=== PATIENT | male | born 1955 | race Caucasian/White ===

== ENCOUNTER 2019-01-12 20:57 | Inpatient (IN) | payer MEDICARE ==
[2019-01-12] MEDS ORDERED: Sodium Chloride 0.9% 1,000 ML IV STA (21:55)
--- NOTE | 2019-01-12 22:01 | ED PDOC ---
HPI: Abdomen Time Seen by Provider: 01/12/19 21:27 Chief Complaint (Nursing): Abdominal Pain Chief Complaint (Provider): Abdominal Pain History Per: Patient, Family (brother) History/Exam Limitations: no limitations Onset/Duration Of Symptoms: Days (worsened today) Current Symptoms Are (Timing): Constant Location Of Pain/Discomfort: RLQ Quality Of Discomfort: "Pain" Associated Symptoms: Nausea, Urinary Symptoms. denies: Fever, Vomiting, Diarrhea, Back Pain Additional Complaint(s): 63 year old male with a history of CVA, hypertension and possible kidney stones presents to the ED with constant, right sided abdominal and flank pain. Patient reports pain started in September, but worsened today. At onset, patient was evaluated in [place], at which time they found possible kidney stones on the left side. At present pain does not radiate to back. Patient is bloated, nauseous, and has pain with urination, but denies any vomiting, hematuria, and diarrhea. Patient does not take aspirin due to previous hemorrhagic stroke. He still has residual right sided arm and leg weakness. PMD: Leobardo Past Medical History Reviewed: Historical Data, Nursing Documentation, Vital Signs Vital Signs: Last Vital Signs Temp 98.6 F 01/12/19 21:05 Pulse 77 01/12/19 21:05 Resp 18 01/12/19 21:05 BP 186/108 H 01/12/19 21:05 Pulse Ox 97 01/12/19 21:05 - Medical History PMH: CVA (Right sided residual weakness), HTN, Kidney Stones, Chronic Kidney Disease Denies: Alzheimer's Disease, Arthritis, Atrial Fibrillation, CAD, Cardia Arrhythmia, CHF, COPD, Dementia, HIV, Hypercholesterolemia, Hypothyroidism, Migraine, Mitral Valve Prolapse, Multiple Sclerosis, Parkinson's Disease, Peripheral Edema, Rheumatoid Arthritis, Seizures, TIA - Surgical History Surgical History: Hernia Repair Denies: Appendectomy, CABG, Carotid Endarterectomy, Cholecystectomy, Coronary Stent, Pacemaker, Tonsillectomy Other surgeries: 2 orthopedic surgeries - Family History Family History: States: Unknown Family Hx - Home Medications Home Medications: Ambulatory Orders Medication Instructions Recorded Multivit-Min/Folic/Vit K/Lycop 1 tab PO DAILY 03/21/16 [One-A-Day Men's Tablet] Diltiazem HCl [Cartia Xt] 240 mg PO DAILY #0 03/22/16 Metoprolol Tartrate 50 mg PO BID #0 03/22/16 - Allergies Allergies/Adverse Reactions: Allergies Allergy/AdvReac Type Severity Reaction Status Date / Time aspirin Allergy RASH Verified 01/12/19 21:03 Review of Systems ROS Statement: Except As Marked, All Systems Reviewed And Found Negative Gastrointestinal: Positive for: Nausea, Abdominal Pain. Negative for: Vomiting, Diarrhea Genitourinary Male: Positive for: Dysuria. Negative for: Hematuria Physical Exam - Reviewed Nursing Documentation Reviewed: Yes Vital Signs Reviewed: Yes - Physical Exam Appears: Positive for: Non-toxic, No Acute Distress Head Exam: Positive for: ATRAUMATIC, NORMOCEPHALIC Skin: Positive for: Normal Color, Warm, Dry Eye Exam: Positive for: Normal appearance, EOMI, PERRL Cardiovascular/Chest: Positive for: Regular Rate, Rhythm Respiratory: Positive for: Normal Breath Sounds. Negative for: Respiratory Distress Gastrointestinal/Abdominal: Positive for: Soft, Tenderness (RLQ tenderness) Neurological/Psych: Positive for: Awake, Alert, Oriented (x3), Other (right arm and right leg residual weakness after CVA). Negative for: Facial Droop - Laboratory Results Result Diagrams: 01/14/19 06:35 01/14/19 06:35 - ECG O2 Sat by Pulse Oximetry: 97 (RA) Pulse Ox Interpretation: Normal Medical Decision Making Medical Decision Making: Time: 2153 Impression: RLQ pain Differential diagnoses include but are not limited to: acute appendicitis, obstructive nephrolithiasis, or UTI Plan: --CT abdomen and pelvis --CMP --U dip --CBC --Morphine 2 mg IVP --IV fluids --UA Time: 2300 --Patient signed out to Dr. Fox by this provider, pending CT abdomen. Scribe Attestation: Documented by Kay Antonio, acting as a scribe for Camila Coronado MD. Provider Scribe Attestation: All medical record entries made by the Scribe were at my direction and personally dictated by me. I have reviewed the chart and agree that the record accurately reflects my personal performance of the history, physical exam, medical decision making, and the department course for this patient. I have also personally directed, reviewed, and agree with the discharge instructions and disposition. Disposition - Clinical Impression Clinical Impression: Ureteral calculus, Obstructive uropathy, Abdominal pain - Patient ED Disposition Is Patient to be Admitted: Transfer of Care Counseled Patient/Family Regarding: Studies Performed, Diagnosis - Disposition Disposition: Transfer of Care Disposition Time: 23:00 Condition: STABLE Patient Signed Over To: Talon Fox
[2019-01-12 22:18] LABS: BASO # 0.1 K/uL (0.0-0.2); BASO % 0.5 % (0.0-2.0); EOS # 0.1 K/uL (0.0-0.7); EOS % 1.1 % (0.0-4.0); LYMPH # 1.9 K/uL (1.0-4.3); MEAN CELL VOLUME 83.2 fl (80.0-94.0); MEAN CORPUSCULAR HEMOGLOBIN 26.8 pg (27.0-31.0); MEAN CORPUSCULAR HGB CONC 32.2 g/dL (33.0-37.0); MEAN PLATELET VOLUME 8.6 fl (7.2-11.7); MONO # 0.8 K/uL (0.0-0.8); MONO % 6.7 % (0.0-10.0); NEUT # 8.5 K/uL (1.8-7.0); NEUT % 74.7 % (50.0-75.0); RBC 4.85 Mil/uL (4.40-5.90); RED CELL DISTRIBUTION WIDTH 14.9 % (11.5-14.5); WHITE BLOOD COUNT 11.4 K/uL (4.8-10.8)
[2019-01-12 22:28] LABS: ALBUMIN 3.8 g/dL (3.5-5.0); ALT/SGPT 30 U/L (21-72); AST/SGOT 24 U/L (17-59); BLOOD UREA NITROGEN 13 mg/dl (9-20); CALCIUM 9.2 mg/dL (8.4-10.2); GFR NON-AFRICAN AMERICAN > 60
[2019-01-12 22:28] LABS: URINE BILIRUBIN NEGATIVE (NEGATIVE); URINE BLOOD NEGATIVE (NEGATIVE); URINE CLARITY CLEAR (Clear); URINE COLOR YELLOW (YELLOW); URINE GLUCOSE (UA) NEG (NEGATIVE); URINE LEUKOCYTE ESTERASE NEG Leu/uL (Negative); URINE PROTEIN NEGATIVE (NEGATIVE); URINE UROBILINOGEN 0.2-1.0 mg/dL (0.2-1.0)
[2019-01-12] MEDS ORDERED: Sodium Chloride 0.9% 50 ML IV ONE ×2 (22:45→22:54)
[2019-01-12] MEDS ORDERED: Iohexol 300 100 ML IJ ONE ×2 (22:45→22:53)
--- NOTE | 2019-01-12 23:21 | ED PDOC ---
- Laboratory Results Result Diagrams: 01/12/19 22:10 01/12/19 22:10 Lab Results: Total Bilirubin 0.4 mg/dl (0.2-1.3) 01/12/19 22:10 AST 24 U/L (17-59) 01/12/19 22:10 ALT 30 U/L (21-72) 01/12/19 22:10 Alkaline Phosphatase 136 U/L (38-126) H 01/12/19 22:10 Total Protein 7.7 G/DL (6.3-8.2) 01/12/19 22:10 Albumin 3.8 g/dL (3.5-5.0) 01/12/19 22:10 Globulin 3.9 gm/dL (2.2-3.9) 01/12/19 22:10 Albumin/Globulin Ratio 1.0 (1.0-2.1) 01/12/19 22:10 Urine Color Yellow (YELLOW) 01/12/19 22:15 Urine Clarity Clear (Clear) 01/12/19 22:15 Urine pH 7.0 (5.0-8.0) 01/12/19 22:15 Ur Specific Exline 1.015 (1.003-1.030) 01/12/19 22:15 Urine Protein Negative mg/dL (NEGATIVE) 01/12/19 22:15 Urine Glucose (UA) Neg mg/dL (NEGATIVE) 01/12/19 22:15 Urine Ketones Negative mg/dL (NEGATIVE) 01/12/19 22:15 Urine Blood Negative (NEGATIVE) 01/12/19 22:15 Urine Nitrate Negative (NEGATIVE) 01/12/19 22:15 Urine Bilirubin Negative (NEGATIVE) 01/12/19 22:15 Urine Urobilinogen 0.2-1.0 mg/dL (0.2-1.0) 01/12/19 22:15 Ur Leukocyte Esterase Neg Lukas/uL (Negative) 01/12/19 22:15 Urine Microscopic WBC 2 /hpf (0-5) 01/12/19 22:15 - ECG O2 Sat by Pulse Oximetry: 97 (RA) Pulse Ox Interpretation: Normal Medical Decision Making Medical Decision Makin:00 Patient signed out to this provider by Dr. Coronado pending CT abdomen. 00:11 CT Abdomen & Pelvis w/ contrast FINDINGS: LUNG BASES: The lung bases appear clear. No pleural effusions are seen. LIVER: There is mild diffuse fatty infiltration of liver. GALLBLADDER AND BILE DUCTS: Multiple gallstones are present. PANCREAS: Unremarkable. SPLEEN: Unremarkable. ADRENAL GLANDS: Unremarkable. KIDNEYS, URETERS, AND BLADDER: There are bilateral renal cysts, right much greater than left. The largest a septated cyst versus 2 adjoining cysts at the right lower pole measuring 12.2 cm in greatest dimension on series 2, image 46. Given the presence of an apparent soft tissue septae consider further evaluation with renal ultrasound or renal MRI if indicated. There is mild to moderate right hydronephrosis and right hydroureter to the level of the ureterovesicular junction where there is an obstructing calculus m easuring 12 x 10 mm. Bladder is decompressed. STOMACH AND BOWEL: Stomach is predominantly decompressed. There is moderate to severe sigmoid diverticulosis. There is questionable mild stranding near the proximal sigmoid near images 60 of series 2. This could represent mild acute diverticulitis. Please correlate clinically. There is constipation the proximal colon. No evidence for bowel obstruction. APPENDIX: No evidence of acute appendicitis on CT examination. PERITONEUM: No free fluid. No free air. LYMPH NODES: No lymphadenopathy is evident. REPRODUCTIVE: Prostate is prominent measuring 5.0 cm transverse. VASCULATURE: No evidence of abdominal aortic aneurysm. BONES: There is a mild s-shaped thoracolumbar scoliosis. There are moderate multilevel degenerative spine changes. MISCELLANEOUS: There is a tiny fat containing left inguinal hernia. IMPRESSION: 1. There is mild diffuse fatty infiltration of liver. 2. Multiple gallstones are present. 3. There are bilateral renal cysts, right much greater than left. The largest a septated cyst versus 2 adjoining cysts at the right lower pole measuring 12.2 cm in greatest dimension on series 2, image 46. Given the presence of an apparent soft tissue septae consider further evaluation with renal ultrasound or renal MRI if indicated. 4. There is mild to moderate right hydronephrosis and right hydroureter to the level of the ureterovesicular junction where there is an obstructing calculus measuring 12 x 10 mm. 5. There is moderate to severe sigmoid diverticulosis. There is questionable mild stranding near the proximal sigmoid near images 60 of series 2. This could represent mild acute diverticulitis. Please correlate clinically. 6. Additional incidental and non urgent findings as described above. 00:[address] Peraza of patient. He will be admitted for obstructive uropathy secondary to right sided urethral calculus with hydronephrosis and hydroureter. Scribe Attestation: Documented by Nikki Bermudez, acting as a scribe Jaylin Fox MD. Provider Scribe Attestation: All medical record entries made by the Scribe were at my direction and personally dictated by me. I have reviewed the chart and agree that the record accurately reflects my personal performance of the history, physical exam, medical decision making, and the department course for this patient. I have also personally directed, reviewed, and agree with the discharge instructions and disposition. Disposition - Clinical Impression Clinical Impression: Ureteral calculus, Obstructive uropathy - POA Present On Arrival: None - Disposition Disposition: Admitted as In-Patient Disposition Time: 01:00 Condition: FAIR
[2019-01-13] MEDS ORDERED: cefTRIAXone (Rocephin) 1 gm Inj ONE (01:22)
--- NOTE | 2019-01-13 01:23 | CP.PCM.HP ---
<Freya Butterfield - Last Filed: 01/13/19 02:07> History of Present Illness - History of Present Illness History of Present Illness: 63 year old male with a history of hemorrhagic CVA with residual R side weakness, hypertension and kidney stones in the past presents to the ED with constant, right sided abdominal and flank pain. Patient reports pain intermittently since September and was evaluated in [place], at that time they found possible kidney stones on the left side. Today he reports pain is worse, constant, 8/10, does not radiate to back or groin.Associated abdominal bloating, nauseous, and has pain with urination, but denies any vomiting, hematuria, and diarrhea, states good urine output. Patient does not take aspirin due to previous hemorrhagic stroke. PMD: Leobardo PMH: Hemorrhagic CVA 30 yrs ago with residual R side weakness, HTN, BPH, Kidney stone. PSH: Hernia Repair, 2 orthopedic surgeries FMH: noncontributory Meds: reviewed NKDA. SH: occasional etoh on weekends, denies tobacco or ilicit drugs use. Present on Admission - Present on Admission Any Indicators Present on Admission: No Review of Systems - Review of Systems All systems: reviewed and no additional remarkable complaints except (HPI) Past Patient History - Past Medical History & Family History Past Medical History?: Yes - Past Social History Smoking Status: Never Smoked - CARDIAC Hx Atrial Fibrillation: No Hx Cardia Arrhythmia: No Hx Congestive Heart Failure: No Hx Hypercholesterolemia: No Hx Hypertension: Yes Hx Mitral Valve Prolapse: No Hx Pacemaker: No Hx Peripheral Edema: No - PULMONARY Hx Chronic Obstructive Pulmonary Disease (COPD): No - NEUROLOGICAL Hx Alzheimer's Disease: No Hx Dementia: No Hx Migraine: No Hx Multiple Sclerosis: No Hx Parkinson's Disease: No Hx Seizures: No Hx Transient Ischemic Attacks (TIA): No - HEENT Hx HEENT Problems: No - RENAL Hx Chronic Kidney Disease: Yes Hx Kidney Stones: Yes - ENDOCRINE/METABOLIC Hx Hypothyroidism: No - HEMATOLOGICAL/ONCOLOGICAL Hx Human Immunodeficiency Virus (HIV): No - INTEGUMENTARY Hx Dermatological Problems: No Other/Comment: Chicken Pox - MUSCULOSKELETAL/RHEUMATOLOGICAL Hx Arthritis: No Hx Rheumatoid Arthritis: No - GASTROINTESTINAL Hx Gastrointestinal Disorders: No - GENITOURINARY/GYNECOLOGICAL Hx Genitourinary Disorders: No Other/Comment: Hydrocele - PSYCHIATRIC Hx Psychophysiologic Disorder: No Hx Substance Use: No - SURGICAL HISTORY Hx Appendectomy: No Hx Carotid Endarterectomy: No Hx Cholecystectomy: No Hx Coronary Artery Bypass Graft: No Hx Coronary Stent: No Hx Tonsillectomy: No - ANESTHESIA Hx Anesthesia: Yes Hx Anesthesia Reactions: No Hx Malignant Hyperthermia: No Meds Allergies/Adverse Reactions: Allergies Allergy/AdvReac Type Severity Reaction Status Date / Time aspirin Allergy RASH Verified 01/12/19 21:03 Physical Exam - Constitutional Appears: No Acute Distress - Head Exam Head Exam: NORMAL INSPECTION - Eye Exam Eye Exam: EOMI, PERRL - Respiratory Exam Respiratory Exam: Clear to Auscultation Bilateral, NORMAL BREATHING PATTERN - Cardiovascular Exam Cardiovascular Exam: REGULAR RHYTHM, +S1, +S2. absent: Tachycardia - GI/Abdominal Exam GI & Abdominal Exam: Normal Bowel Sounds, Soft, Tenderness (RLQ, no CVA tenderness). absent: Distended - Extremities Exam Extremities exam: Negative for: calf tenderness, pedal edema - Back Exam Back exam: absent: CVA tenderness (L), CVA tenderness (R) - Neurological Exam Neurological exam: Abnormal Gait (Due to R side weakness, R arm also hemiplegic), Alert, Oriented x3 - Skin Skin Exam: Dry, Normal Color, Warm Results - Vital Signs Recent Vital Signs: Last Vital Signs Temp 98.6 F 01/12/19 21:05 Pulse 77 01/12/19 21:05 Resp 18 01/12/19 21:05 BP 186/108 H 01/12/19 21:05 Pulse Ox 97 01/13/19 00:39 - Labs Result Diagrams: 01/12/19 22:10 01/12/19 22:10 Labs: Laboratory Results - last 24 hr 01/12/19 01/12/19 01/12/19 22:10 22:10 22:15 WBC 11.4 H RBC 4.85 Hgb 13.0 Hct 40.4 MCV 83.2 MCH 26.8 L MCHC 32.2 L RDW 14.9 H Plt Count 281 MPV 8.6 Neut % (Auto) 74.7 Lymph % (Auto) 17.0 L Wright % (Auto) 6.7 Eos % (Auto) 1.1 Baso % (Auto) 0.5 Neut # (Auto) 8.5 H Lymph # (Auto) 1.9 Wright # (Auto) 0.8 Eos # (Auto) 0.1 Baso # (Auto) 0.1 Sodium 141 Potassium 4.2 Chloride 99 Carbon Dioxide 28 Anion Gap 18 BUN 13 Creatinine 1.0 Est GFR ( Amer) > 60 Est GFR (Non-Af Amer) > 60 Random Glucose 120 H Calcium 9.2 Total Bilirubin 0.4 AST 24 ALT 30 Alkaline Phosphatase 136 H Total Protein 7.7 Albumin 3.8 Globulin 3.9 Albumin/Globulin Ratio 1.0 Urine Color Yellow Urine Clarity Clear Urine pH 7.0 Ur Specific Prescott 1.015 Urine Protein Negative Urine Glucose (UA) Neg Urine Ketones Negative Urine Blood Negative Urine Nitrate Negative Urine Bilirubin Negative Urine Urobilinogen 0.2-1.0 Ur Leukocyte Esterase Neg Urine Microscopic WBC 2 Assessment & Plan - Assessment and Plan (Free Text) Assessment: 63 year old male with a history of hemorrhagic CVA with residual R side weakness, hypertension and kidney stones in the past presents to the ED with constant, right sided abdominal and flank pain. Patient reports pain intermit tently since September and was evaluated in [place], at that time they found possible kidney stones on the left side. Today he reports pain is worse, constant, 8/10, does not radiate to back or groin.Associated abdominal bloating, nauseous, and has pain with urination, but denies any vomiting, hematuria, and diarrhea, states good urine output. Patient does not take aspirin due to previous hemorrhagic stroke. Patient admitted due to obstructive uropathy and R ureter stone. ABD CT: mild diffuse fatty infiltration of liver, Multiple gallstones are present. There are bilateral renal cysts, right much greater than left. The largest a septated cyst versus 2 adjoining cysts at the right lower pole measuring 12.2 cm in greatest dimension on series 2, image 46. Given the presence of an apparent soft tissue septae consider further evaluation with renal ultrasound or renal MRI if indicated. There is mild to moderate right hydronephrosis and right hydroureter to the level of the ureterovesicular junction where there is an obstructing calculus measuring 12 x 10 mm. There is moderate to severe sigmoid diverticulosis. There is questionable mild stranding near the proximal sigmoid near images 60 of series 2. This could represent mild acute diverticulitis. Plan: Obstructive uropathy/Ureteral stone/ b/l renal cysts - secondary to right sided ureteral calculus with hydronephrosis and hydroureter - obstructing calculus measuring 12 x [address] - Urology Dr Peraza consulted, recs appreciated - UA negative for UTI - Continue IV fluids - Pain management : morphine - NPO except meds - f/u labs in am h/o hemorrhagic CVA - residual R side weakness - continue home meds Hypertension - well controlled - continue home meds BPH - stable - c/w tamsulosin DVT ppx - SCD for now FULL CODE Case seen and examined with Dr Maurilio Majano PGY 2 <Jose Thorpe - Last Filed: 01/13/19 04:58> Results - Vital Signs Recent Vital Signs: Last Vital Signs Temp 98.1 F 01/13/19 02:24 Pulse 66 01/13/19 02:24 Resp 19 01/13/19 02:24 BP 164/99 H 01/13/19 02:24 Pulse Ox 97 01/13/19 02:24 - Labs Result Diagrams: 01/12/19 22:10 01/12/19 22:10 Labs: Laboratory Results - last 24 hr 01/12/19 01/12/19 01/12/19 22:10 22:10 22:15 WBC 11.4 H RBC 4.85 Hgb 13.0 Hct 40.4 MCV 83.2 MCH 26.8 L MCHC 32.2 L RDW 14.9 H Plt Count 281 MPV 8.6 Neut % (Auto) 74.7 Lymph % (Auto) 17.0 L Wright % (Auto) 6.7 Eos % (Auto) 1.1 Baso % (Auto) 0.5 Neut # (Auto) 8.5 H Lymph # (Auto) 1.9 Wright # (Auto) 0.8 Eos # (Auto) 0.1 Baso # (Auto) 0.1 Sodium 141 Potassium 4.2 Chloride 99 Carbon Dioxide 28 Anion Gap 18 BUN 13 Creatinine 1.0 Est GFR ( Amer) > 60 Est GFR (Non-Af Amer) > 60 Random Glucose 120 H Calcium 9.2 Total Bilirubin 0.4 AST 24 ALT 30 Alkaline Phosphatase 136 H Total Protein 7.7 Albumin 3.8 Globulin 3.9 Albumin/Globulin Ratio 1.0 Urine Color Yellow Urine Clarity Clear Urine pH 7.0 Ur Specific [place] 1.015 Urine Protein Negative Urine Glucose (UA) Neg Urine Ketones Negative Urine Blood Negative Urine Nitrate Negative Urine Bilirubin Negative Urine Urobilinogen 0.2-1.0 Ur Leukocyte Esterase Neg Urine Microscopic WBC 2 Attending/Attestation - Attestation I have personally seen and examined this patient.: Yes I have fully participated in the care of the patient.: Yes I have reviewed all pertinent clinical information: Yes Notes (Text): 01/13/19 04:44 I saw, examined and discussed this patient with Dr Butterfield. I agree with the assessment and plan outlined above. This is a 63 years old male with hx of Nephrolithiasis, who comes with Right lower quadrant abdominal pain with nausea, diaphoresis and increase in this pain on urination.The CT abdomen/pelvis showed a calculus 12/10mm at the right Uretervesical junctioin with hydroureter and hydronephrosis. We will consult Urology for this renal colic, start pain management. Start IV fluids, Flomax and Empiric antibiotics for UTI. The CT scan also suggest representation of acute sigmoid Diverticulitis. We will continue our present antibiotic. Jose Thorpe MD
[2019-01-13] MEDS: Sodium Chloride 0.9% 1,000 ML IV SCH ×4 (01:30→21:19)
[2019-01-13] MEDS ORDERED: Morphine 4 MG/ML VIAL IVP PRN (04:37)
[2019-01-13] MEDS: Morphine 4 MG/ML VIAL IVP PRN ×2 (05:16→13:16)
[2019-01-13 06:55] LABS: BASO # 0.1 K/uL (0.0-0.2); BASO % 0.5 % (0.0-2.0); EOS # 0.2 K/uL (0.0-0.7); EOS % 1.6 % (0.0-4.0); HEMOGLOBIN 13.1 g/dL (12.0-18.0); LYMPH # 2.8 K/uL (1.0-4.3); LYMPH % 25.6 % (20.0-40.0); MEAN CORPUSCULAR HEMOGLOBIN 27.2 pg (27.0-31.0); MEAN CORPUSCULAR HGB CONC 32.8 g/dL (33.0-37.0); MEAN PLATELET VOLUME 9.3 fl (7.2-11.7); NEUT # 6.9 K/uL (1.8-7.0); NEUT % 63.3 % (50.0-75.0); NRBC % 0.1 % (0.0-0.0); RBC 4.81 Mil/uL (4.40-5.90); RED CELL DISTRIBUTION WIDTH 14.6 % (11.5-14.5); WHITE BLOOD COUNT 10.9 K/uL (4.8-10.8)
[2019-01-13 07:02] LABS: ALBUMIN 3.6 g/dL (3.5-5.0); ALT/SGPT 23 U/L (21-72); AST/SGOT 21 U/L (17-59); BLOOD UREA NITROGEN 10 mg/dl (9-20); CALCIUM 8.9 mg/dL (8.4-10.2); GFR NON-AFRICAN AMERICAN > 60
[2019-01-13] MEDS: Multivitamin With Minerals Tab PO SCH (08:51)
[2019-01-13] MEDS: diltiaZEM 240 mg/24 Hours CD Cap PO SCH (08:52)
[2019-01-13] MEDS ORDERED: LYCOP PO SCH (09:00)
[2019-01-13] MEDS ORDERED: MULTIVIT MIN PO SCH (09:00)
[2019-01-13] MEDS ORDERED: VIT K PO SCH (09:00)
[2019-01-13] MEDS ORDERED: FOLIC PO SCH (09:00)
[2019-01-13 09:11] LABS: INR 1.1
--- NOTE | 2019-01-13 12:20 | CT ---
Date of service: 01/12/2019 PROCEDURE: CT Abdomen and Pelvis with contrast HISTORY: RLQ pain COMPARISON: 01/11/2013 CT scan, ultrasound exam 03/06/2018 TECHNIQUE: Contrast dose: 95 mL Radiation dose: Total exam DLP = 826.61 mGy-cm. This CT exam was performed using one or more of the following dose reduction techniques: Automated exposure control, adjustment of the mA and/or kV according to patient size, and/or use of iterative reconstruction technique. FINDINGS: LOWER THORAX: Mild dependent atelectasis and minor interstitial thickening is seen at the lung bases. No focal infiltrate or pleural effusion is seen. No pericardial effusion is noted. Distal esophagus is unremarkable. LIVER: Diffuse fatty infiltration of the liver is once again identified. No focal liver mass or intrahepatic ductal dilatation is seen. GALLBLADDER AND BILE DUCTS: Multiple gallstones are noted. No gallbladder wall thickening or pericholecystic fluid. Common bile duct is normal in size. PANCREAS: Unremarkable. No gross lesion or ductal dilatation. SPLEEN: Unremarkable. ADRENALS: Unremarkable. No mass. KIDNEYS AND URETERS: There is evidence of a very large right intramural UVJ calculus causing moderate right hydroureter and hydronephrosis. This measures up to 12 millimeters in size. Mild perinephric changes are identified. There is additionally interval increase in size of 2 large exophytic lower pole right renal cysts from the prior study. These were evaluated on the recent ultrasound examination from 2018. There is some minimal thickening of the septa although no appreciable abnormal enhancement is noted. Follow-up ultrasound would be suggested as the preliminary report mentions some thickening of the septa and soft tissue. Smaller left renal cyst is identified. No left renal calculus or hydronephrosis is seen. No left ureteral calculus is noted. VASCULATURE: Unremarkable. No aortic aneurysm. No aortic atherosclerotic calcification or mural plaque present. BOWEL: Chronic diverticular changes are seen in the sigmoid colon. Minimal pericolonic changes are not excluded adjacent to the sigmoid colon. No bowel obstruction is identified. Small bowel is otherwise unremarkable. Stomach is decompressed limiting evaluation for wall thickening. APPENDIX: Normal appendix. PERITONEUM: No ascites is seen. No free intraperitoneal air is identified. LYMPH NODES: Unremarkable. No enlarged lymph nodes. BLADDER: Right intramural UVJ calculus. No other bladder calculus or bladder wall thickening seen. REPRODUCTIVE: Prostate gland is enlarged. BONES: Degenerative changes are seen in the spine. OTHER FINDINGS: None. IMPRESSION: Large right UVJ calculus causing right hydronephrosis and perinephric change. Two large lower pole exophytic previously identified renal cyst. Follow-up ultrasound would be suggested to confirm stability. Please see other findings above.
[2019-01-13] MEDS: metroNIDAZOLE 500mg/100ml NS 100 ML IVPB SCH ×2 (13:03→17:17)
--- NOTE | 2019-01-13 18:30 | CARD ---
APPROVED REPORT Date of service: 01/13/2019 EKG Measurement Heart [id number] <Conclusion> Normal sinus rhythm Normal ECG
[2019-01-13] MEDS ORDERED: Enoxaparin 40 mg Syringe SC SCH (19:30)
[2019-01-14] MEDS: metroNIDAZOLE 500mg/100ml NS 100 ML IVPB SCH ×2 (00:43→08:41)
[2019-01-14 07:24] LABS: HEMOGLOBIN 12.2 g/dL (12.0-18.0); MEAN CELL VOLUME 83.1 fl (80.0-94.0); MEAN CORPUSCULAR HEMOGLOBIN 26.5 pg (27.0-31.0); MEAN CORPUSCULAR HGB CONC 31.9 g/dL (33.0-37.0); RBC 4.58 Mil/uL (4.40-5.90); RED CELL DISTRIBUTION WIDTH 14.9 % (11.5-14.5); WHITE BLOOD COUNT 11.3 K/uL (4.8-10.8)
[2019-01-14 08:15] LABS: ALB/GLOB RATIO 0.9 (1.0-2.1); ALBUMIN 3.2 g/dL (3.5-5.0); ALT/SGPT 36 U/L (21-72); AST/SGOT 23 U/L (17-59); BLOOD UREA NITROGEN 12 mg/dl (9-20); CALCIUM 8.6 mg/dL (8.4-10.2); GFR NON-AFRICAN AMERICAN > 60
[2019-01-14] MEDS: diltiaZEM 240 mg/24 Hours CD Cap PO SCH (08:40)
[2019-01-14] MEDS: Sodium Chloride 0.9% 1,000 ML IV SCH (08:40)
[2019-01-14] MEDS: Multivitamin With Minerals Tab PO SCH (08:42)
[2019-01-14] MEDS: Morphine 4 MG/ML VIAL IVP PRN (08:51)
--- NOTE | 2019-01-14 11:53 | RAD ---
Date of service: 01/13/2019 HISTORY: No stated history COMPARISON: 03/21/2016. TECHNIQUE: Chest PA and lateral FINDINGS: LINES AND TUBES: None. LUNG AND PLEURA: The lungs are well inflated and clear. No pleural effusion or pneumothorax. HEART AND MEDIASTINUM: The heart is not enlarged. No aortic atherosclerotic calcifications present. The hilar and mediastinal contours are within normal limits. SKELETAL STRUCTURES: The bony structures are within normal limits for the patient's age. VISUALIZED UPPER ABDOMEN: Normal. OTHER FINDINGS: None. IMPRESSION: No active pulmonary disease.
[2019-01-14] MEDS ORDERED: Propofol 10 mg/ml Inj (20 ML) ONE (12:07)
[2019-01-14] MEDS ORDERED: Midazolam 2 MG/2 ML VIAL ONE (12:08)
[2019-01-14] MEDS ORDERED: cefTRIAXone (Rocephin) 1 gm Inj ONE (12:23)
[2019-01-14] MEDS ORDERED: Lactated Ringer's 500 ML IV ONE (12:30)
[2019-01-14] MEDS ORDERED: Sodium Chloride 0.9% 500 ML IV ONE (12:30)
[2019-01-14] MEDS ORDERED: cefTRIAXone (Rocephin) 1 gm Inj IM ONE (12:35)
[2019-01-14] MEDS ORDERED: ePHEDrine 50 mg/ml Inj ONE (12:39)
[2019-01-14] MEDS ORDERED: Lactated Ringer's 1,000 ML IV ONE (13:16)
[2019-01-14] MEDS ORDERED: Lactated Ringer's 1,000 ML IV SCH (13:30)
--- NOTE | 2019-01-14 15:17 | CP.PCM.DIS ---
Provider - Provider Date of Admission: 01/13/19 00:33 Attending physician: Jose Thorpe Primary care physician: Dr. Booth Consults: 01/13/19 00:34 Urology Consult Stat Comment: already aware Consulting Provider: Irina Peraza Consulting Physician: Irina Peraza Reason for Consult: ureteral calculus Time Spent in preparation of Discharge (in minutes): 30 Hospital Course - Lab Results Lab Results: Most Recent Lab Values WBC 11.3 K/uL (4.8-10.8) H 01/14/19 06:35 RBC 4.58 Mil/uL (4.40-5.90) 01/14/19 06:35 Hgb 12.2 g/dL (12.0-18.0) 01/14/19 06:35 Hct 38.1 % (35.0-51.0) 01/14/19 06:35 MCV 83.1 fl (80.0-94.0) 01/14/19 06:35 MCH 26.5 pg (27.0-31.0) L 01/14/19 06:35 MCHC 31.9 g/dL (33.0-37.0) L 01/14/19 06:35 RDW 14.9 % (11.5-14.5) H 01/14/19 06:35 Plt Count 241 K/uL (130-400) 01/14/19 06:35 MPV 9.3 fl (7.2-11.7) 01/13/19 05:05 Neut % (Auto) 63.3 % (50.0-75.0) 01/13/19 05:05 Lymph % (Auto) 25.6 % (20.0-40.0) 01/13/19 05:05 Ellis % (Auto) 9.0 % (0.0-10.0) 01/13/19 05:05 Eos % (Auto) 1.6 % (0.0-4.0) 01/13/19 05:05 Baso % (Auto) 0.5 % (0.0-2.0) 01/13/19 05:05 Neut # (Auto) 6.9 K/uL (1.8-7.0) 01/13/19 05:05 Lymph # (Auto) 2.8 K/uL (1.0-4.3) 01/13/19 05:05 Ellis # (Auto) 1.0 K/uL (0.0-0.8) H 01/13/19 05:05 Eos # (Auto) 0.2 K/uL (0.0-0.7) 01/13/19 05:05 Baso # (Auto) 0.1 K/uL (0.0-0.2) 01/13/19 05:05 PT 13.0 Seconds (9.8-13.1) 01/13/19 08:20 INR 1.1 01/13/19 08:20 APTT 31.5 Seconds (25.6-37.1) 01/13/19 08:20 Sodium 140 mmol/l (132-148) 01/14/19 06:35 Potassium 4.0 MMOL/L (3.6-5.0) 01/14/19 06:35 Chloride 99 mmol/L (98-107) 01/14/19 06:35 Carbon Dioxide 29 mmol/L (22-30) 01/14/19 06:35 Anion Gap 16 (10-20) 01/14/19 06:35 BUN 12 mg/dl (9-20) 01/14/19 06:35 Creatinine 1.0 mg/dl (0.8-1.5) 01/14/19 06:35 Est GFR ( Amer) > 60 01/14/19 06:35 Est GFR (Non-Af Amer) > 60 01/14/19 06:35 Random Glucose 97 mg/dL (75-110) 01/14/19 06:35 Calcium 8.6 mg/dL (8.4-10.2) 01/14/19 06:35 Total Bilirubin 0.4 mg/dl (0.2-1.3) 01/14/19 06:35 AST 23 U/L (17-59) 01/14/19 06:35 ALT 36 U/L (21-72) 01/14/19 06:35 Alkaline Phosphatase 98 U/L (38-126) 01/14/19 06:35 Total Protein 6.7 G/DL (6.3-8.2) 01/14/19 06:35 Albumin 3.2 g/dL (3.5-5.0) L 01/14/19 06:35 Globulin 3.4 gm/dL (2.2-3.9) 01/14/19 06:35 Albumin/Globulin Ratio 0.9 (1.0-2.1) L 01/14/19 06:35 Urine Color Yellow (YELLOW) 01/12/19 22:15 Urine Clarity Clear (Clear) 01/12/19 22:15 Urine pH 7.0 (5.0-8.0) 01/12/19 22:15 Ur Specific [place] 1.015 (1.003-1.030) 01/12/19 22:15 Urine Protein Negative mg/dL (NEGATIVE) 01/12/19 22:15 Urine Glucose (UA) Neg mg/dL (NEGATIVE) 01/12/19 22:15 Urine Ketones Negative mg/dL (NEGATIVE) 01/12/19 22:15 Urine Blood Negative (NEGATIVE) 01/12/19 22:15 Urine Nitrate Negative (NEGATIVE) 01/12/19 22:15 Urine Bilirubin Negative (NEGATIVE) 01/12/19 22:15 Urine Urobilinogen 0.2-1.0 mg/dL (0.2-1.0) 01/12/19 22:15 Ur Leukocyte Esterase Neg Lukas/uL (Negative) 01/12/19 22:15 Urine Microscopic WBC 2 /hpf (0-5) 01/12/19 22:15 - Hospital Course Hospital Course: 63 year old male with 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 Ct abdomen and pelvis showed right hydronephrosis and obstructing stone at UVJ 12 mm x 10 mm Patient admitted to med/surg started on IVF , pain management , Flomax and Roce phin prophylactically Urology was consulted and he underwent cystoscopy with stone manipulation and stent placement . Patient tolerated procedure well Will d/c home on Cipro 500 mg pO BID for 1 week prophylactically He will need to follow up with Dr. Booth as outpatient follow up with Dr. Javier in his office in 1 week Will need stent removal Dx 1. Renal Colic 2.Right hydronephrosis with right UVJ obstructing stone 3. Hypertension 4.BPH 5.history of hemorrhagic CVA with right side weakness Discharge Exam - Head Exam Head Exam: ATRAUMATIC, NORMOCEPHALIC - Eye Exam Eye Exam: EOMI, Normal appearance, PERRL Pupil Exam: NORMAL ACCOMODATION - ENT Exam ENT Exam: Mucous Membranes Moist, Normal Exam - Neck Exam Neck exam: Full Rom, Normal Inspection - Respiratory Exam Respiratory Exam: Clear to PA & Lateral, NORMAL BREATHING PATTERN. absent: Rales, Rhonchi, Wheezes - Cardiovascular Exam Cardiovascular Exam: REGULAR RHYTHM, RRR, +S1, +S2. absent: JVD - GI/Abdominal Exam GI & Abdominal Exam: Normal Bowel Sounds, Soft. absent: Distended, Guarding, Rebound, Tenderness - Rectal Exam Rectal Exam: Deferred - Extremities Exam Extremities exam: normal capillary refill, normal inspection, pedal pulses present - Back Exam Back exam: NORMAL INSPECTION - Neurological Exam Neurological exam: Alert, CN II-XII Intact, Oriented x3 Additional comments: right UE weakness with hand flexion contracture - Psychiatric Exam Psychiatric exam: Normal Affect, Normal Mood - Skin Skin Exam: Dry, Intact, Normal Color, Warm Discharge Plan - Discharge Medications Prescriptions: Ciprofloxacin [Cipro] 500 mg PO BID #14 tab - Follow Up Plan Condition: STABLE Disposition: HOME/ ROUTINE Patient education suggested?: Yes Instructions: Kidney Stones (DC), Ureteroscopy, Cystoscopy (DC) Additional Instructions: follow up with dr peraza 1 week Referrals: Irina Peraza MD [Medical Doctor] - Karan Booth MD [Staff Provider] -
--- NOTE | 2019-01-14 15:23 | CP.PCM.DIS ---
Provider - Provider Date of Admission: 01/13/19 00:33 Attending physician: Jose Thorpe Consults: 01/13/19 00:34 Urology Consult Stat Comment: already aware Consulting Provider: Irina Dowd Consulting Physician: Irina Dowd Reason for Consult: ureteral calculus Time Spent in preparation of Discharge (in minutes): 38 Hospital Course - Lab Results Lab Results: Most Recent Lab Values WBC 11.3 K/uL (4.8-10.8) H 01/14/19 06:35 RBC 4.58 Mil/uL (4.40-5.90) 01/14/19 06:35 Hgb 12.2 g/dL (12.0-18.0) 01/14/19 06:35 Hct 38.1 % (35.0-51.0) 01/14/19 06:35 MCV 83.1 fl (80.0-94.0) 01/14/19 06:35 MCH 26.5 pg (27.0-31.0) L 01/14/19 06:35 MCHC 31.9 g/dL (33.0-37.0) L 01/14/19 06:35 RDW 14.9 % (11.5-14.5) H 01/14/19 06:35 Plt Count 241 K/uL (130-400) 01/14/19 06:35 MPV 9.3 fl (7.2-11.7) 01/13/19 05:05 Neut % (Auto) 63.3 % (50.0-75.0) 01/13/19 05:05 Lymph % (Auto) 25.6 % (20.0-40.0) 01/13/19 05:05 [place] % (Auto) 9.0 % (0.0-10.0) 01/13/19 05:05 Eos % (Auto) 1.6 % (0.0-4.0) 01/13/19 05:05 Baso % (Auto) 0.5 % (0.0-2.0) 01/13/19 05:05 Neut # (Auto) 6.9 K/uL (1.8-7.0) 01/13/19 05:05 Lymph # (Auto) 2.8 K/uL (1.0-4.3) 01/13/19 05:05 [place] # (Auto) 1.0 K/uL (0.0-0.8) H 01/13/19 05:05 Eos # (Auto) 0.2 K/uL (0.0-0.7) 01/13/19 05:05 Baso # (Auto) 0.1 K/uL (0.0-0.2) 01/13/19 05:05 PT 13.0 Seconds (9.8-13.1) 01/13/19 08:20 INR 1.1 01/13/19 08:20 APTT 31.5 Seconds (25.6-37.1) 01/13/19 08:20 Sodium 140 mmol/l (132-148) 01/14/19 06:35 Potassium 4.0 MMOL/L (3.6-5.0) 01/14/19 06:35 Chloride 99 mmol/L (98-107) 01/14/19 06:35 Carbon Dioxide 29 mmol/L (22-30) 01/14/19 06:35 Anion Gap 16 (10-20) 01/14/19 06:35 BUN 12 mg/dl (9-20) 01/14/19 06:35 Creatinine 1.0 mg/dl (0.8-1.5) 01/14/19 06:35 Est GFR ( Amer) > 60 01/14/19 06:35 Est GFR (Non-Af Amer) > 60 01/14/19 06:35 Random Glucose 97 mg/dL (75-110) 01/14/19 06:35 Calcium 8.6 mg/dL (8.4-10.2) 01/14/19 06:35 Total Bilirubin 0.4 mg/dl (0.2-1.3) 01/14/19 06:35 AST 23 U/L (17-59) 01/14/19 06:35 ALT 36 U/L (21-72) 01/14/19 06:35 Alkaline Phosphatase 98 U/L (38-126) 01/14/19 06:35 Total Protein 6.7 G/DL (6.3-8.2) 01/14/19 06:35 Albumin 3.2 g/dL (3.5-5.0) L 01/14/19 06:35 Globulin 3.4 gm/dL (2.2-3.9) 01/14/19 06:35 Albumin/Globulin Ratio 0.9 (1.0-2.1) L 01/14/19 06:35 Urine Color Yellow (YELLOW) 01/12/19 22:15 Urine Clarity Clear (Clear) 01/12/19 22:15 Urine pH 7.0 (5.0-8.0) 01/12/19 22:15 Ur Specific [place] 1.015 (1.003-1.030) 01/12/19 22:15 Urine Protein Negative mg/dL (NEGATIVE) 01/12/19 22:15 Urine Glucose (UA) Neg mg/dL (NEGATIVE) 01/12/19 22:15 Urine Ketones Negative mg/dL (NEGATIVE) 01/12/19 22:15 Urine Blood Negative (NEGATIVE) 01/12/19 22:15 Urine Nitrate Negative (NEGATIVE) 01/12/19 22:15 Urine Bilirubin Negative (NEGATIVE) 01/12/19 22:15 Urine Urobilinogen 0.2-1.0 mg/dL (0.2-1.0) 01/12/19 22:15 Ur Leukocyte Esterase Neg Lukas/uL (Negative) 01/12/19 22:15 Urine Microscopic WBC 2 /hpf (0-5) 01/12/19 22:15 Discharge Exam - Head Exam Head Exam: ATRAUMATIC, NORMOCEPHALIC Discharge Plan - Discharge Medications Prescriptions: Ciprofloxacin [Cipro] 500 mg PO BID #14 tab Tamsulosin [Flomax] 0.4 mg PO DAILY #30 cap - Follow Up Plan Condition: STABLE Disposition: HOME/ ROUTINE Instructions: Kidney Stones (DC), Ureteroscopy, Cystoscopy (DC) Additional Instructions: follow up with dr dowd 1 week Referrals: Irina Dowd MD [Medical Doctor] - Karan Booth MD [Staff Provider] -
--- NOTE | 2019-01-14 15:41 | RAD ---
Date of service: 01/14/2019 PROCEDURE: Fluoroscopy up to 1 hr. HISTORY: CYSTO: RIGHT STONE BASKETING AND STENT PLACEMENT COMPARISON: None TECHNIQUE: Standard protocol for this study/examination. FINDINGS: Total fluoroscopic time (continuous mode) utilized during the procedure 26.7 seconds. Total exam DLP: 12.06 (mGy). IMPRESSION: Less than 1 hr fluoroscopic assistance provided during performance of the procedure.
[2019-01-14 16:43] VITALS: BP 135/67; PULSE 60; RESP 20; TEMP 97.6; O2SAT 96
--- NOTE | 2019-02-04 21:46 | OP ---
PROCEDURE DATE: 01/14/2019 PREOPERATIVE DIAGNOSIS: Right renal colic with ureteral calculus. POSTOPERATIVE DIAGNOSIS: Right renal colic with ureteral calculus. PROCEDURES PERFORMED: Cystoscopy, right ureteroscopy, stone basketing, and double J-stent placement under general anesthesia. SURGEON: Irina Peraza MD ANESTHESIA: General anesthesia. DESCRIPTION OF PROCEDURE: The patient was placed on the operating room table in a dorsal lithotomy position. The area of the groin was draped and prepped in a sterile manner. Using a ureteroscope, I entered into the bladder atraumatically, identified the right ureteral orifice, and over a floppy-tipped Glidewire, I advanced to the level of the obstructing stone. I bypassed the stone, and at this time, I deployed a double-helical basket, engaged the stone and removed it completely. Once this was done, I did a second look ureteroscopy of that right side to see that there was no other fragments and there were done. At this point with the guidewire in place, I then over the guidewire fluoroscopically inserted a 6-[place] multi-link double J-stent. Once this was done, the rest of the instrumentation was removed. The patient was taken from the operating room in good condition. Irina Peraza MD
== END 2019-01-14 17:12 | disposition home or self-care (01) | DRG 660 ==
LOC: H.ER 20:57 → H.ERHOLD 01-13 00:33 → H.MEDSURG1 01-13 01:59
PROVIDERS: ADMIT Internal Medicine; ATTEND Internal Medicine
PROC: 0TC68ZZ Extirpation of Matter from Right Ureter, Via Natural or Artificial Opening Endoscopic (ICD-10-PCS; 2019-01-14)
PROC: 0TJB8ZZ Inspection of Bladder, Via Natural or Artificial Opening Endoscopic (ICD-10-PCS; 2019-01-14)
PROC: 0T768DZ Dilation of Right Ureter with Intraluminal Device, Via Natural or Artificial Opening Endoscopic (ICD-10-PCS; principal; 2019-01-14 12:00)
DX: N13.2 Hydronephrosis with renal and ureteral calculous obstruction (principal); I69.351 Hemiplegia and hemiparesis following cerebral infarction affecting right dominant side; N13.4 Hydroureter; N28.1 Cyst of kidney, acquired; I12.9 Hypertensive chronic kidney disease with stage 1 through stage 4 chronic kidney disease, or unspecified chronic kidney disease; K57.30 Diverticulosis of large intestine without perforation or abscess without bleeding; K76.0 Fatty (change of) liver, not elsewhere classified; K80.20 Calculus of gallbladder without cholecystitis without obstruction; N18.9 Chronic kidney disease, unspecified; N21.1 Calculus in urethra; N40.0 Benign prostatic hyperplasia without lower urinary tract symptoms; Z87.442 Personal history of urinary calculi; N43.3 Hydrocele, unspecified; Z79.899 Other long term (current) drug therapy